=== PATIENT | female | born 2005 | race Caucasian/White ===

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

== ENCOUNTER 2024-09-14 14:45 | Emergency (ER) | payer MEDICAID, SELFPAY ==
[2024-09-14 15:15] VITALS: BP 116/55; PULSE 81; RESP 16; TEMP 36.8; O2SAT 100; BMI 25.8
--- OUTSIDE RECORDS SUMMARY | 2024-09-14 15:40 | XMS_ITS | Referral Summary ---
Author Organization [employer] Address [address] [place] [address] Care Team Providers Care Visual Basic .Net Developer Name Role Phone Nisreen España MD Primary Care Provider + Allergies Active Allergy Reactions Criticality Noted Date Comments Diphenhydramine Other (See Comments) 06/14/2021 Reaction is unknown, do not give benadryl Latex 11/28/2023 Other Nausea Only High 06/14/2021 Reaction is unknown per mother, do not give Benadryl Penicillin 11/28/2023 Penicillins Anaphylaxis High 06/13/2021 Medications albuterol HFA (VENTOLIN HFA) 90 mcg/actuation inhaler Inhale 2 puffs by mouth via inhaler. Active EPINEPHrine (EpiPen 2-Tam) 0.3 mg/0.3 mL AtIn Inject 0.3 mLs (0.3 mg total) intramuscularl y. Active plecanatide (Trulance) 3 mg tab Take 3 mg by mouth daily for 90 days. 90 tablet 3 4 Active polyethylene glycol (GoLYTELY) 236-22.74-6.74 -5.86 gram solution Take 4,000 mLs by mouth as directed Take first does at 4-6 pm the evening before procedure. Take second dose day of procedure 5 hours before.. 4000 mL 4 Active Active Problems Problem Noted Date Diagnosed Date Abdominal pain 02/18/2024 Irritable bowel syndrome with constipation 02/17 GERD (gastroesophageal reflux disease) Rectal bleeding 02/18/2024 Eating disorder, unspecified 06/18/2021 Post traumatic stress disorder (PTSD) 06/18/2021 Severe episode of recurrent major depressive disorder, without psychotic features 06/14/2021 Social History Tobacco Use Types Packs/Day Years Used Date Smoking Tobacco: Never Smokeless Tobacco: Never Tobacco Cessation:Counseling Given: Not Answered Alcohol Use Standard Drinks/Week Comments Never 0 (1 standard drink = 0.6 oz pur e alcohol) Interpersonal Safety Answer Date Record ed Family or friends hurt you Not on file 10/29 Family or friends insult you Not on file Family or friends threaten you Not on file 0 10/30/2023 Family or friends scream or curse at you Not on file 10/30/2023 Food Insecurity Answer Date Recorded Food run out past 12 months Not on file 10/06 Food did not last past 12 months Not on file 10/30/2023 Employment Answer Date Recorded Help finding and keeping a job Not on file 0 10/30/2023 Family and Community Support Answer Tray e Recorded Help with Day to Day Activities Not on file 10/30/2023 Feeling Lonely or Isolated Not on file 10/29 Educational Attainment Answer Date Kalpesh rded Speak language other than Turkish at home Not on file 10/30/2023 Want help with school or training Not on file 10/30/2023 Depression Answer Date Recorded PHQ-2 Risk Not on file 10/30/2023 Disabilities Answer Date Recorded Difficulty concentrating Not on file 024 Difficulty doing errands alone Not on file 0 10/30/2023 Substance Use Answer Date Recorded Used prescription meds for non-medical reasons N ot on file 10/30/2023 Used illegal drugs past 12 months Not on file 10/30/2023 Comments Unknown Sex and Gender Information Value Date Recorded Sex Assigned at Not on file Legal Sex Female 9:58 AM CDT Gender Identity Not on file Sexual Orientation Not on file Last Filed Vital Signs Vital Sign Reading Time Taken Comments Blood Pressure 105/72 11/28/2023 10:37 AM EDT Pulse 70 11/28/2023 10:37 AM EDT Temperature - - Respiratory Rate - - Oxygen Saturation - - Inhaled Oxygen Concentration - - Weight 79.7 kg (175 lb 12.8 oz) 024 10:37 AM EDT Height 172.7 cm (5' 8 ) 11/28/2023 10:3 7 AM EDT Body Mass Index 26.73 11/28/2023 10:37 AM EDT Plan of Treatment Not on file Insurance [facility] Care Teams Visual Basic .Net Developer Relationship Specialty Start Date End Date Nisreen España MD [address] [place] [id number] PCP - General Family Medicine 11/28/23
--- OUTSIDE RECORDS SUMMARY | 2024-09-14 15:40 | XMS_ITS | Clinical Summary ---
Author Organization [employer] Address [address] [place] [address] Care Team Providers Care Automatic Pad Making Machine Operator Name Role Phone Nisreen España MD Primary [...] major depressive disorder, without psychotic features 06/14/2021 Family History Medical History Relation Name Comments Colon cancer Maternal Grandfather Relation Name Status Comments Maternal Grandfather Social History Tobacco Use Types Packs/Day Years [...] Date Kalpesh rded Speak language other than Botswanan at home Not on file 10/30/2023 Want [...] 11/28/2023 10:37 AM EDT Plan of Treatment Health Maintenance Due Date Last Done Comments HIV Screening 11/04/2019 Meningococcal B Vaccine (1 o f 2 - Standard) 2020 Hepatitis C Screening 2022 COVID-19 VACCINE ( - 2023-2 5 season) 2023 Tobacco Cessation Counseling and Screening (12+) 11/27/2024 11/28/2023 Influenza Vaccine (Season Ended) 2024 DTAP/TDAP/TD VACCINES (2 - T d or Tdap) 12/26/2025 12/27/2015 Pneumococcal Vaccine: 0-49 Years Aged Out No longer eligible based on patient's age to complete this topic Insurance [facility] Care Teams Automatic Pad Making Machine Operator Relationship Specialty Start Date End Date Nisreen España MD [address] [place] [address] PCP - General Family Medicine 11/28/23
--- NOTE | 2024-09-14 15:55 | ED_ITS ---
<Statement entered by Mao Barton MD - 09/15/24 02:00> Independently evaluated the patient and performed physical exam. Pupils are equal round and reactive, cranial nerves II to XII intact, gross motor and sensory in upper lower extremities intact. Gait is normal. She is resting comfortably in no acute distress. After migraine cocktail, reports complete resolution in her pain. I consider cross-sectional head, but deferred given risks outweigh benefits and she is having no neurologic deficits has a history of migraines and has headache resolved before discharge from the emergency department. Strict precautions were discussed all questions answered and patient is amenable to discharge. I was consulted by the MARKIE, and we discussed the complexity of problems being addressed. I approved the treatment and management plan for this patient's care in the emergency department, thus performing a substantial portion of the medical decision making. Mao Barton MD Discharge Plan Disposition Patient Disposition: Home, Self-Care Prescriptions Prescriptions: New prednisone 20 mg tablet 20 mg PO BID 7 Days Qty: 14 0RF ondansetron 4 mg tablet,disintegrating 4 mg PO Q8H PRN (Reason: nausea and vomiting) 5 Days Qty: 14 0RF Referrals Follow up/Referrals: Provider,Referral, [Referring, Medical] - See instructions Activity Restrictions/Add. Instructions Additional Instructions/Restrictions: Increase fluids and rest. Take meds as directed. Follow-up with the PCP to establish care and get migraine meds. Clinical Impressions Clinical Impression: Nausea & vomiting, Migraine Instructions Patient Instructions: DI for Migraine Print Language Print Language: Spanish Discharge ED Provider: Mao Barton General Adult [facility] General Chief complaint: Headache Stated complaint: migraine for 10 days nausea eye pain Time Seen by Provider: 09/14/24 15:40 Mode of Arrival: Ambulatory Source of Information: Patient Description of Symptoms (Recalled from ER Triage Doc. by RN): PT REPORTS MIGRAINE HEADACHE X 10 DAYS. HAS TAKEN TYLENOL AND MOTRIN WITHOUT RELIEF. SENSITIVE TO LIGHT. REPORTS HX OF MIGRAINES, REPORTS NAUSEA History of Present Illness HPI narrative: 18-year-old female presents to the ED today for complaint of migraine that has been going on for 10 days. She has tried Tylenol and ibuprofen and this has not helped her. She is sensitive to light and sound. She does have nausea as well. She says when she was in high school she had a year that she had migraines a lot. She was told to go outside. Related Data Previous Rx's ?Medication ?Instructions ?Recorded ondansetron 4 mg disintegrating 4 mg PO Q8H PRN nausea and 09/14/24 tablet vomiting 5 days #14 tabs prednisone 20 mg tablet 20 mg PO BID 7 days #14 tabs 09/14/24 Allergies Allergy/AdvReac Type Severity Reaction Status Date / Time Penicillins Allergy Verified 10/22/23 19:[address] [facility] Disclaimer: The information contained in this section may have been updated after the patient was seen, as this information can be updated by other users. Social History (Updated 10/22/23 @ 21:49 by Lavern Leija MD) Smoking Status: Never smoker alcohol intake: never current occupational status: other Travel in the last 8 weeks?: None Have you lived/traveled outside US in past 30 days?: No Contact w/someone who lives/traveled outside US past 30 days?: No Exposure to someone with infectious disease in past 14 days?: No Do you have a fever (greater than 100.4 F or 38 C)?: No Have you tested positive for COVID-19?: No Exposed to someone with COVID-19 in past 14 days?: No Do you have a sore throat?: No Do you have a cough?: No Do you have any weakness?: No Do you have any diarrhea?: No Are you experiencing any unusual bleeding?: No Do you have any muscle aches/pain?: No Do you have any abdominal pain?: No Are you experiencing loss of taste or smell?: No ROS Obtained: Yes Systems reviewed as appropriate & no additional complaints except as documented Constitutional Constitutional: Reports as per HPI Physical Exam General General appearance: alert and in no apparent distress Head Head exam: atraumatic and normocephalic Eye Eye exam: Present PERRL and EOMI ENT ENT exam: Present normal oropharynx and mucous membranes moist Neck Neck exam: Present full ROM and trachea midline Respiratory Respiratory exam: Present normal lung sounds bilaterally Cardiovascular Cardiovascular exam: Present regular rate, normal rhythm, normal heart sounds, +S1 and +S2 Abdominal Exam Abdominal exam: Present soft and normal bowel sounds Extremities Exam Extremities exam: Present full ROM and normal capillary refill Neurological Exam Neurological exam: Present alert, oriented X3 and normal gait Skin Skin exam: Present warm, dry and intact Medical Decision Making Medical Records Screening: Per USPSTF and CDC recommendations, given the prevalence of disease in our region, it is our hospital?s policy to screen for HIV and viral Hepatitis for all patients aged 18 and over and those with ongoing risk factors. Williams Inquiry Pt receiving controlled substance: No Williams was queried for this patient: No Vital Signs: 09/14/24 15:15 09/14/24 16:00 09/14/24 16:30 Temperature 98.2 F Temperature Source Oral Pulse Rate 71 80 Pulse Rate [Radial] 81 Respiratory Rate 16 18 18 Blood Pressure 114/72 131/82 Blood Pressure [Left Arm] 116/55 L Blood Pressure Mean 81 96 Blood Pressure Mean [Left Arm] 75 Blood Pressure Source Blood Pressure Source [Left Arm] Automatic Cuff Blood Pressure Position Blood Pressure Position [Left Arm] Sitting 02 Sat by Pulse Oximetry 100 92 L 99 Oxygen Delivery Method Room Air 09/14/24 17:01 09/14/24 17:49 Temperature 98.1 F Temperature Source Oral Pulse Rate 61 78 Pulse Rate [Radial] Respiratory Rate 18 15 Blood Pressure 126/69 125/78 Blood Pressure [Left Arm] Blood Pressure Mean 86 Blood Pressure Mean [Left Arm] Blood Pressure Source Automatic Cuff Blood Pressure Source [Left Arm] Blood Pressure Position Sitting Blood Pressure Position [Left Arm] 02 Sat by Pulse Oximetry 100 Oxygen Delivery Method Room Air Lab Data Lab Results 09/14/24 15:57: HCV Ab MACKENZIE w/Rflx PCR Qn Negative, HIV Ag/Ab Combo Qual Negative Orders (Tests/Meds): ED MEDICATIONS Discontinued Medications Generic Name Dose Route Start Last Admin Trade Name Freq PRN Reason Stop Dose Admin Dexamethasone Sodium Phosphate 8 mg 09/14/24 15:42 09/14/24 16:02 Dexamethasone 4mg/Ml 1ml Vial IV 09/14/24 15:43 8 mg ONCE ONE Administration Diphenhydramine HCl 25 mg 09/14/24 16:59 09/14/24 17:13 Diphenhydramine 50mg/Ml Vial IV 09/14/24 17:00 25 mg ONCE ONE Administration Sodium Chloride 1,000 mls @ 999 mls/hr 09/14/24 15:42 09/14/24 16:03 Sod Chlor 0.9% 1000ml Bag IV 09/14/24 16:42 999 mls/hr .Q1H1M ONE Administration Ketorolac Tromethamine 30 mg 09/14/24 15:42 09/14/24 16:03 Ketorolac 30mg/Ml Vial IV 09/14/24 15:43 30 mg ONCE ONE Administration Metoclopramide HCl 10 mg 09/14/24 16:59 09/14/24 17:13 Metoclopramide Hcl 10mg/2ml Vial IVP 09/14/24 17:00 10 mg ONCE ONE Administration Ondansetron HCl 4 mg 09/14/24 15:42 09/14/24 16:03 Ondansetron 4mg/2ml Vial IV 09/14/24 15:43 4 mg ONCE ONE Administration ORDERS Category Date Time Status HIV Combo Stat Lab 09/14/24 15:57 Completed Hepatitis C Ab Qual. W/ RFX Stat Lab 09/14/24 15:57 Completed Medical Decision Narrative: patient is a 18-year-old female presenting to the emergency department for evaluation of migraine for 10 days. Patient is hemodynamically stable and nontoxic-appearing upon arrival, afebrile. Differential diagnosis includes migraine, headache, allergies. Workup will be conducted with hematologic labs, specific imaging, provocative tests. Initial inventions include crystalloid bolus, analgesics,. Upon repeat evaluation patient's pain is improved. Critical Care Critical Care Time Critical Care Time: No
[2024-09-14 16:00] VITALS: BP 114/72; PULSE 71; RESP 18; O2SAT 92
[2024-09-14] MEDS: DEXAMETHASONE 4MG/ML 1ML VIAL 8 MG IV (16:02)
[2024-09-14] MEDS: KETOROLAC 30MG/ML VIAL 30 MG IV (16:03)
[2024-09-14] MEDS: 0.9 % SODIUM CHLORIDE 1000ML 1,000 ML 999 ML IV (16:03)
[2024-09-14] MEDS: ONDANSETRON 4MG/2ML VIAL 4 MG IV (16:03)
[2024-09-14 16:30] VITALS: BP 131/82; PULSE 80; RESP 18; O2SAT 99
[2024-09-14 17:01] VITALS: BP 126/69; PULSE 61; RESP 18; O2SAT 100
[2024-09-14 17:12] LABS: Hepatitis C Ab Qual. W/ RFX NEGATIVE (Negative)
[2024-09-14] MEDS: diphenhydrAMINE 50MG/ML VIAL 25 MG IV (17:13)
[2024-09-14] MEDS: METOCLOPRAMIDE HCL 10MG/2ML VIAL 10 MG IVP (17:13)
[2024-09-14 17:23] LABS: HIV Combo NEGATIVE (Negative)
[2024-09-14 17:49] VITALS: BP 125/78; PULSE 78; RESP 15; TEMP 36.7; O2SAT 99
== END 2024-09-14 17:53 | disposition home or self-care (01) ==
PROVIDERS: Emergency Provider Emergency Medicine
DX: G43.909 Migraine, unspecified, not intractable, without status migrainosus (principal); R11.2 Nausea with vomiting, unspecified
CPT/HCPCS: 80074; 87389; 96361; 96374; 96375; 99284; J1100; J1200; J1885; J2405; J2765; J7030

== ENCOUNTER 2024-09-16 11:08 | Emergency (ER) | payer MEDICAID, SELFPAY ==
[2024-09-16 11:17] VITALS: BP 121/87; PULSE 91; RESP 16; TEMP 37.1; O2SAT 97; BMI 25.8
[2024-09-16 11:23] VITALS: BP 121/87; PULSE 91; RESP 16; TEMP 37.1; O2SAT 97
[2024-09-16 11:30] VITALS: BP 120/78; PULSE 68; O2SAT 100
[2024-09-16 11:41] LABS: Basophils % 0.3 % (0.1-2.0); Hematocrit 41.9 % (37.0-47.0); Hemoglobin 13.7 g/dL (12.2-16.2); Immature Granulocytes # 0.06 10^3uL; Immature Granulocytes % 0.5 %; Lymphocytes # 1.8 K/mm3 (0.7-4.5); Lymphocytes % 13.7 % (10-50); Mean Corpuscular HGB Conc 32.7 g/dL (31.8-35.4); Mean Corpuscular Hemoglobin 29.1 pg (27.0-31.2); Mean Corpuscular Volume 89.1 fl (81-99); Mean Platelet Volume 9.5 fl (7.4-10.4); Monocytes # 0.4 K/mm3 (0.1-1.0); Monocytes % 3.2 % (1.7-9.3); Neutrophils # 10.9 K/mm3 (1.8-7.8); Neutrophils % 82.3 % (37.0-80.0); Nucleated Red Blood Cells # 0 10^3/uL; Nucleated Red Blood Cells % 0 %; Platelet Count 339 K/mm3 (142-424); Red Cell Distribution Width 12.7 % (11.5-17.5); Red Cell Distribution Width-SD 41.4 fL; White Blood Count 13.3 K/mm3 (4.5-13.0)
[2024-09-16] MEDS: KETOROLAC 30MG/ML VIAL 15 MG IV (11:46)
[2024-09-16] MEDS: ACETAMINOPHEN 1,000MG/100ML VIAL 1000 MG IV (11:46)
[2024-09-16] MEDS: MAGNESIUM SULFATE IN WATER 2 GM/50 ML PIGGYBACK IV (11:46)
[2024-09-16] MEDS: diphenhydrAMINE 50MG/ML VIAL 25 MG IV (11:46)
[2024-09-16] MEDS: 0.9 % SODIUM CHLORIDE 500 ML IV (11:47)
[2024-09-16] MEDS: droPERidol 5MG/2ML VIAL 2.5 MG IV (11:47)
[2024-09-16 11:56] LABS: Alanine Aminotransferase 17 U/L (12-78); Albumin Level 4.9 g/dl (3.5-5.0); Albumin/Globulin Ratio 1.4 (1.1-1.8); Alkaline Phosphatase 113 U/L (38-126); Anion Gap 11.2 mEq/L (5-15); Aspartate Amino Transferase 24 U/L (14-36); Bilirubin,Total 0.4 mg/dl (0.2-1.3); Blood Urea Nitrogen 10 mg/dl (7-17); Calcium 9.7 mg/dl (8.4-10.2); Carbon Dioxide 23 mmol/L (22.0-30.0); Chloride 108 mmol/L (98-107); Creatinine Clearance Estimated 184 mL/min (50-200); Estimated Glomerular Filt Rate 129 ml/min (>60); GFR (African American) 156 ML/MIN (>60); Globulin 3.5 g/dL (1.3-3.2); Glucose 94 mg/dl (74-100); Potassium 4.2 mmoL/L (3.5-5.1); Sodium 138 mmol/L (136-145); Total Protein,Serum 8.4 g/dl (6.3-8.2)
[2024-09-16 12:00] VITALS: BP 137/78; PULSE 66; O2SAT 100
--- NOTE | 2024-09-16 12:01 | ECG_ITS ---
APPROVED REPORT Exam: Resting ECG HR:56 bpm ECG Measurements Heart Rate 56 AXES NH 118 P -12 QRSd 82 QRS 40 QT 414 T 25 QTc 407 Conclusion SINUS BRADYCARDIA WITH SHORT NH INTERVAL BORDERLINE ECG UNCONFIRMED REPORT Electronically signed by : EMILIO CAMPOS, 09/17/2024 06:51:15
--- NOTE | 2024-09-16 12:07 | ED_ITS ---
Discharge Plan Disposition Patient Disposition: Home, Self-Care Prescriptions Prescriptions: New dexamethasone 6 mg tablet 6 mg PO DAILY PRN (Reason: migraine headache) Qty: 5 0RF metoclopramide HCl [Reglan] 10 mg tablet 10 mg PO Q6H PRN (Reason: nausea and vomiting) Qty: 20 0RF No Action prednisone 20 mg tablet 20 mg PO BID 7 Days Qty: 14 0RF ondansetron 4 mg tablet,disintegrating 4 mg PO Q8H PRN (Reason: nausea and vomiting) 5 Days Qty: 14 0RF Referrals Follow up/Referrals: Provider,Referral, MD [Primary Care Provider, Medical] - See instructions Activity Restrictions/Add. Instructions Additional Instructions/Restrictions: Call your family doctor to establish care for this visit to the emergency department and schedule follow-up within 48 hours to ensure improvement. If you have any worsening of your condition or any other concerning signs or symptoms, return to the emergency department or your primary care doctor for further evaluation. At the onset of migraine, take acetaminophen 1000 mg, ibuprofen 600 mg, 800 mg of magnesium oxide, 10 mg metoclopramide, drink plenty of fluids and lay down in a cool dark place. If becoming anxious with metoclopramide, you can take 25 mg of Benadryl. If migraine does not ease off after about 2 hours, add steroid. Know that steroids can cause insomnia if taken within a few hours of bedtime. Clinical Impressions Clinical Impression: Migraine Print Language Print Language: Mexican Discharge ED Provider: Alan Smith General Adult HPI General Chief complaint: Headache Stated complaint: migraine, brain fog , pressure, nausea Time Seen by Provider: 09/16/24 11:19 Mode of Arrival: Ambulatory Source of Information: Patient Description of Symptoms (Recalled from ER Triage Doc. by RN): pt presents to the ED with a migraine. pt has hx of migraines in the past and was recently seen on 09/14 with relief of the migraine but 20 minutes after leaving the facility the pt started having a migraine again. pt states she has brain fog, her ears hurt, and warm slosh in the back of her head. pt reports having more screen time recently just started a college class. History of Present Illness HPI narrative: Please note that above description of symptoms, in this electronic medical record under categorization of recalled from ER triage doctor by RN are reflective of an initial nursing assessment, however, is not reflective of my full history and physical exam that was personally taken and clarified. Consequentially, this preceding description of symptoms, which may include the patient's categorized chief complaint in the EMR, do not reflect my personal clinical impression, and the ultimate description of history of present illness and patient stated complaints should be deferred to this section of the note. Unless stated otherwise or congruent with this section of the note, additional signs, symptoms, or incongruence should be interpreted as inaccurate with my clinical impression. Related Data Previous Rx's ?Medication ?Instructions ?Recorded ondansetron 4 mg disintegrating 4 mg PO Q8H PRN nausea and 09/14/24 tablet vomiting 5 days #14 tabs prednisone 20 mg tablet 20 mg PO BID 7 days #14 tabs 09/14/24 dexamethasone 6 mg tablet 6 mg PO DAILY PRN migraine 0 09/16/24 headache #5 tabs metoclopramide HCl 10 mg tablet 10 mg PO Q6H PRN nause a and 09/16/24 (Reglan) vomiting #20 tabs Allergies Allergy/AdvReac Type Severity Reaction Status Date / Time Penicillins Allergy Verified 10/22/23 19:03 [facility] Disclaimer: The information contained in this section may have been updated after the patient was seen, as this information can be updated by other users. Social History Smoking Status: Never smoker alcohol intake: never current occupational status: other Travel in the last 8 weeks?: None Have you lived/traveled outside [place] in past 30 days?: No Contact w/someone who lives/traveled outside [place] past 30 days?: No Exposure to someone with infectious disease in past 14 days?: No Do you have a fever (greater than 100.4 F or 38 C)?: No Have you tested positive for COVID-19?: No Exposed to someone with COVID-19 in past 14 days?: No Do you have a sore throat?: No Do you have a cough?: No Do you have any weakness?: No Do you have any diarrhea?: No Are you experiencing any unusual bleeding?: No Do you have any muscle aches/pain?: No Do you have any abdominal pain?: No Are you experiencing loss of taste or smell?: No ROS Obtained: Yes All systems reviewed & no additional complaints except as documented Physical Exam General General appearance: alert Head Head exam: atraumatic and normocephalic Eye Eye exam: Present normal appearance, PERRL and EOMI Neck Neck exam: Present normal inspection, full ROM and trachea midline Respiratory Respiratory exam: Absent respiratory distress, wheezes, stridor, accessory muscle use or prolonged expiratory phase Cardiovascular Cardiovascular exam: Present regular rate, normal rhythm and other (Pulses equal symmetric in upper and lower extremities) Abdominal Exam Abdominal exam: Present soft; Absent distention, tenderness or pulsatile mass Extremities Exam Extremities exam: Absent edema Neurological Exam Neurological exam: Present alert, oriented X3, CN II-XII intact and normal gait; Absent motor sensory deficit Skin Skin exam: Present warm and dry; Absent diaphoresis or erythema Medical Decision Making Medical Records Medical records reviewed: Yes I reviewed the patient's medical records. Screening: Per USPSTF and CDC recommendations, given the prevalence of disease in our region, it is our hospital?s policy to screen for HIV and viral Hepatitis for all patients aged 18 and over and those with ongoing risk factors. Williams Inquiry Pt receiving controlled substance: No Williams was queried for this patient: No Vital Signs: 09/16/24 11:17 09/16/24 11:23 09/16/24 11:30 Temperature 98.7 F 98.7 F Temperature Source Oral Oral Pulse Rate 91 H 68 Pulse Rate [Right] 91 H Respiratory Rate 16 16 Blood Pressure 121/87 120/78 Blood Pressure [Right Arm] 121/87 Blood Pressure Mean 94 Blood Pressure Mean [Right Arm] 98 Blood Pressure Source Automatic Cuff Blood Pressure Source [Right Arm] Automatic Cuff Blood Pressure Position Supine Blood Pressure Position [Right Arm] Supine 02 Sat by Pulse Oximetry 97 97 100 Oxygen Delivery Method Room Air Room Air 09/16/24 12:00 Temperature Temperature Source Pulse Rate 66 Pulse Rate [Right] Respiratory Rate Blood Pressure 137/78 Blood Pressure [Right Arm] Blood Pressure Mean 94 Blood Pressure Mean [Right Arm] Blood Pressure Source Blood Pressure Source [Right Arm] Blood Pressure Position Blood Pressure Position [Right Arm] 02 Sat by Pulse Oximetry 100 Oxygen Delivery Method Lab Data Lab Results 09/16/24 11:16: WBC 13.3 H, RBC 4.70, Hgb 13.7, Hct 41.9, MCV 89.1, MCH 29.1, MCHC 32.7, RDW 12.7, Plt Count 339, MPV 9.5, Neut % (Auto) 82.3 H, Lymph % (Auto) 13.7, Davis % (Auto) 3.2, Eos % (Auto) 0.0 L, Baso % (Auto) 0.3, Neut # (Auto) 10.9 H, Lymph # (Auto) 1.8, Davis # (Auto) 0.4, Eos # (Auto) 0.0, Baso # (Auto) 0.0, Sodium 138, Potassium 4.2, Chloride 108 H, Carbon Dioxide 23, Anion Gap 11.2, BUN 10, Creatinine 0.60, Estimated Creat Clear 184, Estimated GFR 129, Est GFR ( Amer) 156, Glucose 94, Calcium 9.7, Total Bilirubin 0.4, AST 24, ALT 17, Alkaline Phosphatase 113, Total Protein 8.4 H, Albumin 4.9, Globulin 3.5 H, Albumin/Globulin Ratio 1.4, HCG, Quant < 2 09/16/24 11:16 09/16/24 11:16 Orders (Tests/Meds): ED MEDICATIONS Discontinued Medications Generic Name Dose Route Start Last Admin Trade Name Freq PRN Reason Stop Dose Admin Acetaminophen 1,000 mg 09/16/24 11:35 09/16/24 11:46 Acetaminophen 1,000mg/100ml Vial IV 09/16/24 11:36 1,000 mg ONCE ONE Administration Diphenhydramine HCl 25 mg 09/16/24 11:35 09/16/24 11:46 Diphenhydramine 50mg/Ml Vial IV 09/16/24 11:36 25 mg ONCE ONE Administration Droperidol 2.5 mg 09/16/24 11:35 09/16/24 11:47 Droperidol 5mg/2ml Vial IV 09/16/24 11:36 2.5 mg ONCE ONE Administration Magnesium Sulfate 2 gm in 50 mls @ 50 mls/hr 09/16/24 11:35 09/16/24 11:46 Magnesium Sulfate 2gm/50ml Premix IV 09/16/24 12:34 50 mls/hr ONCE ONE Administration Sodium Chloride 500 mls @ 500 mls/hr 09/16/24 11:36 09/16/24 11:47 Sod Chloride 0.9% 500ml Bag IV 09/16/24 12:35 500 mls/hr .Q1H LEEANN Administration Ketorolac Tromethamine 15 mg 09/16/24 11:35 09/16/24 11:46 Ketorolac 30mg/Ml Vial IV 09/16/24 11:36 15 mg ONCE ONE Administration ORDERS Category Date Time Status POCUS Point of Care (ER Only) Stat Exams 09/16/24 11:54 Completed CBC w/Auto Diff [Complete Blood Count Auto Diff] Stat Lab 09/16/24 11:16 Completed CMP [Comprehensive Metabolic Panel] Stat Lab 09/16/24 11:16 Completed HCG,Quantitative Stat Lab 09/16/24 11:16 Completed Medical Decision Narrative: 18-year-old female presenting with migraine. She states that she has had a migraine for about 12 days. Nonpositional. States that it feels better when she lays down. She does state that it gets worse when she puts pressure on the back of her head. Feels like a pressure that starts between her eyes and radiates to her occiput. No vision changes, facial swelling, neurologic deficits, confusion, fevers, chills, neck stiffness. She is photophobic as well. No history of migraines prior to this in the past. Not currently on any contraceptive, not taking daily medications and no large life or interpersonal stressors. Nobody in the house is having similar symptoms. No chance of .. History was obtained via conversation with patient. On arrival, patient hemodynamically stable, alert, oriented x4, appropriate, GCS 15, moving all extremities spontaneously, pupils equal and reactive to light. Full physical exam performed and significant for neurologically intact female in no acute distress. Pupils 4 mm and reactive bilaterally. Reactive accommodation. No range of motion of neck abnormalities. Appropriate, unremarkable exam overall. Differential includes cluster headache, migraine, tension headache, less likely to be space-occupying lesion in the brain given no neurologic deficits, intracranial hemorrhage given indolent nature, cerebral DVT given better with lying flat and not worse in the morning, worse throughout the day, among others. Patient placed on continuous cardiac monitoring and continuous pulse ox with initial blood pressure 121/87, heart rate 91, saturation 97% on room air. Independent interpretation of EKG shows sinus bradycardia 56 bpm with CO 118, QRS 82, QTc 407. Normal axis and no acute electrical or ischemic change. Patient was placed in observation beginning at 11:40 AM in order to give meds, and determine need for admission versus home-going. Patient was given ketamine for pain, droperidol, Benadryl, Toradol, magnesium, fluids for symptomatic management and correction of underlying abnormalities. Bedside [id number] ultrasound was performed. Optic nerve just over 4 mm, within normal limits and unconcerning for any intracranial pressure increase. Independent interpretation of results demonstrated no acute hematologic labs necessitating intervention. On reevaluation, patient resting completely baseline without any headache. At this time, I feel patient is appropriate for discharge. Total observation time [address] versus not with mother, mother asking if it is necessary, I stated I do not feels with the radiation risk, patient not having any neurologic deficits, and improved with cocktail, not deemed necessary. Because patient at baseline without signs or symptoms of clinical decompensation, deemed appropriate for discharge. Results were relayed to patient who voiced understanding and were agreeable to outpatient management and follow up. I discussed my clinical impression with patient and answered all questions. At this time, the evidence for any other entities in the differential is insufficient to warrant any further testing or ED observation. This was explained as well. Advisory was given that persistent or worsening symptoms require further evaluation. I confirmed the understanding of this discussion. Division Chief disclaimer Much of this encounter note is an electronic vaccines solutions specialist spoken language to printed text. Electronic vaccines solutions specialist of the spoken language may permit errors. Although I have reviewed the note, some errors may still exist. Critical Care Critical Care Time Critical Care Time: No
[2024-09-16 12:14] LABS: HCG,Quantitative < 2 mIU/ml (0-5.42)
[2024-09-16 14:02] VITALS: BP 137/78; PULSE 62; RESP 17; TEMP 36.9; O2SAT 100
== END 2024-09-16 14:03 | disposition home or self-care (01) ==
PROVIDERS: Emergency Provider Emergency Medicine
DX: G43.909 Migraine, unspecified, not intractable, without status migrainosus (principal); R00.1 Bradycardia, unspecified
CPT/HCPCS: 80053; 84702; 85025; 93005; 96365; 96375; 99284; J0131; J1200; J1790; J1885; J3475; J7040